=== PATIENT | female | born 1975 | race American Indian/Alaskan Native ===

== ENCOUNTER 2019-07-13 13:55 | Emergency (ER) | payer SELFPAY ==
--- NOTE | 2019-07-13 14:26 | Emergency Department Report ---
Chief Complaint: Upper Respiratory Infection Stated Complaint: COUGH/CHILLS/FLU SYM - HPI History of Present Illness: 43 yo female with nasal congestion, cough, fatigue. Mild sputum production. - Exam Vital Signs: hypertensive Physical Exam: appears well normal voice normal oropharynx lungs CTA B normal gait MSE screening note: Focused history and physical exam performed. URI vs influenza, given supportive care instruction for OTC treatment MSE performed and completed patient dc'd recommended outpatient medicine physician evaluation for asymptomatic hypertension ED Disposition for MSE Clinical Impression: Encounter for medical screening examination Disposition: MED SCREENING EXAM-LEFT Condition: Stable Referrals: ERAN FERNANDES MD [Staff Physician] - 3-5 Days Forms: Work/School Release Form(ED)
[2019-07-13 14:27] VITALS: BP 186/111
== END 2019-07-13 14:30 | disposition left against medical advice (07) ==
LOC: EDBD → ED 13:55
DX: R05 Cough (principal); R09.81 Nasal congestion; R53.83 Other fatigue
CPT/HCPCS: 99281